=== PATIENT | male | born 2000 | race Two or more races ===

== ENCOUNTER 2022-05-16 21:22 | Emergency (ER) | payer SELFPAY ==
[~2022-05-16] VITALS: Ht 180.3 cm; Wt 68.2 kg
[2022-05-16 21:46] VITALS: BP 130/76
== END 2022-05-16 22:05 | disposition home or self-care (01) ==
LOC: EDBD 21:22 → ER 21:22
DX: M54.9 Dorsalgia, unspecified (principal); V49.69XA Unspecified car occupant injured in collision with other motor vehicles in traffic accident, initial encounter; Y93.89 Activity, other specified; Y92.89 Other specified places as the place of occurrence of the external cause; Y99.8 Other external cause status